=== PATIENT | male | born 1985 | race American Indian/Alaskan Native ===

== ENCOUNTER 2022-03-27 17:32 | Inpatient (IN) | payer BC ==
--- NOTE | 2022-03-27 21:34 | XRay Report ---
XR chest routine 2V INDICATION / CLINICAL INFORMATION: chest pain. COMPARISON: None available. FINDINGS: SUPPORT DEVICES: None. HEART /PULMONARY VASCULATURE: Cardiac enlargement with pulmonary vasculature congestion. LUNGS / PLEURA: Diffuse increased interstitial markings. No focal airspace consolidation. No sizable pleural effusion. No pneumothorax. ADDITIONAL FINDINGS: No significant additional findings. IMPRESSION: Cardiac enlargement with pulmonary vasculature congestion. Diffuse increased interstitial markings ma y reflect interstitial edema or atypical infiltrate, given provided clinical history of COVID. Signer Name: Gerald Beltrán MD Signed: 03/27/2022 9:30 PM Workstation Name: [id number]
[2022-03-27 22:03] LABS: Basophils % (Auto) 0.6 % (0.0-1.8); Eosinophils % (Auto) 0.6 % (0.0-4.3); Hematocrit 44.2 % (35.5-45.6); Hemoglobin 14.5 gm/dl (11.8-15.2); Lymphocytes # (Auto) 1.8 K/mm3 (1.2-5.4); Lymphocytes % (Auto) 24.7 % (13.4-35.0); Mean Corpuscular HGB Conc 33 % (32-34); Mean Corpuscular Volume 90 fl (84-94); Monocytes # (Auto) 0.6 K/mm3 (0.0-0.8); Monocytes % (Auto) 8.8 % (0.0-7.3); Platelet Count 287 K/mm3 (140-440); Red Blood Count 4.91 M/mm3 (3.65-5.03); Red Cell Distribution Width 14.6 % (13.2-15.2)
[2022-03-27 22:24] LABS: Alanine Aminotransferase 103 units/L (7-56); Albumin 4.2 g/dL (3.9-5); BUN/Creatinine Ratio 14; Blood Urea Nitrogen 18 mg/dL (9-20); Calcium 8.8 mg/dL (8.4-10.2); Hemolysis Index 17
[2022-03-28] MEDS ORDERED: MORPHINE 4 MG/1 ML INJ IV ONE (01:13)
[2022-03-28] MEDS ORDERED: ONDANSETRON 4 MG/2 ML INJ IV ONE (01:13)
[2022-03-28] MEDS ORDERED: FAMOTIDINE 20 MG/2 ML INJ IV ONE (01:13)
[2022-03-28] MEDS ORDERED: ASPIRIN 325 MG TAB PO ONE (01:14)
--- NOTE | 2022-03-28 02:40 | Cat Scan Report ---
CT ABDOMEN AND PELVIS WITH CONTRAST INDICATION / CLINICAL INFORMATION: ABDOMINAL PAIN. TECHNIQUE: Axial CT images were obtained through the abdomen and pelvis after 100 cc Omnipaque [address] scans at this location are performed using CT dose reduction for ALARA by means of automated exposure control. COMPARISON: CTA chest same date. FINDINGS: LOWER CHEST: Place a comparison study for findings. LIVER: No focal lesion. No acute findings. GALLBLADDER: No significant abnormality. BILE DUCTS: No significant abnormality. SPLEEN: No significant abnormality. PANCREAS: No significant abnormality. ADRENALS: No significant abnormality. KIDNEYS/URETERS: No stones or hydronephrosis. No solid renal lesion. STOMACH / DUODENUM / SMALL BOWEL: The stomach, duodenum, and small bowel demonstrate no significant a bnormality. No specific abnormality of the mesentery demonstrated. COLON: No significant abnormality. APPENDIX: No significant abnormality. PERITONEUM: No free air or free fluid are present within the abdomen or pelvis. LYMPH NODES: No significant adenopathy. AORTA / ARTERIES: No significant abnormality. IVC / VEINS: No significant abnormality. URINARY BLADDER: No significant abnormality. REPRODUCTIVE ORGANS: No significant abnormality. ADDITIONAL ABDOMINAL/PELVIC FINDINGS: None. SKELETAL SYSTEM: No significant abnormality. IMPRESSION: 1. No imaging findings to suggest etiology of the provided symptoms. Signer Name: Demetrius Chan II, MD Signed: 03/28/2022 2:36 AM Workstation Name: [id number]
--- NOTE | 2022-03-28 02:40 | Cat Scan Report ---
CTA CHEST WITH CONTRAST INDICATION / CLINICAL INFORMATION: DYSPNEA. TECHNIQUE: Axial CT images were obtained through the chest after injection of 100 cc Omnipaque 350 IV contrast. 3 plane MIP and/or 3D reconstructions were produced. All CT scans at this location are per formed using CT dose reduction for ALARA by means of automated exposure control. COMPARISON: Chest x-ray 03/27/2022 FINDINGS: VASCULAR FINDINGS: PULMONARY ARTERY: Pulmonary artery is normal in size. No filling defects are present compatible with pulmonary artery embolus.. THORACIC AORTA: No significant abnormality. CORONARY ARTERY CALCIFICATION: Absent -- None. NONVASCULAR FINDINGS: LOWER NECK: Soft tissues and musculature of the lower neck demonstrate no significant abnormality. Th e thyroid demonstrates no significant abnormality. HEART: Mild cardiomegaly. Four-chamber enlargement. MEDIASTINUM / RODOLFO: No significant abnormality. ESOPHAGUS: No significant abnormality. LYMPH NODES: Enlarged lymph nodes within the prevascular space, lower right paratracheal space, and b orderline enlarged right hilar lymph nodes. LUNGS: Subsegmental atelectasis within the lingula. Within the lower lobes, smoothly thickened interl obular septal lines are present. The dependent pulmonary venous structures are minimally engorged. PLEURA: No pleural effusion. No pneumothorax. THORACIC SOFT TISSUES: No significant abnormality of the chest wall or upper thoracic musculature. BONES: No significant skeletal abnormalities. ADDITIONAL CHEST FINDINGS: None. UPPER ABDOMEN: No significant abnormality. IMPRESSION: 1. No CT evidence for pulmonary embolism. 2. Additional findings as detailed above are most suggestive of mildly decompensated CHF with vascula r congestive changes as well as mild interstitial pulmonary edema. 3. Mediastinal adenopathy of uncertain clinical significance. Signer Name: Demetrius Chan II, MD Signed: 03/28/2022 2:36 AM Workstation Name: [id number]
--- NOTE | 2022-03-28 03:20 | Emergency Department Report ---
ED Abdominal Pain HPI - General Chief Complaint: Abdominal Pain Stated Complaint: STOMACH PAIN Source: patient Mode of arrival: Ambulatory Limitations: No Limitations - History of Present Illness Initial Comments: Patient is a 36-year-old -[place] male with a history of morbid obesity and previous COVID-19 viral infection about 2 weeks ago presents to the ED with complaint of acute onset persistent shortness of breath on exertion with mild dry cough and orthopnea for the last 1 week. Patient also complains of nausea and vomiting and diffuse abdominal pain for the last 5 days. Patient states that in the last 2 days he has not been able to keep anything down because of persistent nausea and vomiting and diffuse abdominal pain and worsening shortness of breath. Patient states that he has since tested negative for COVID- 19 viral infection about 3 days ago. Patient denies fever, chills, diarrhea, dizziness, syncope, change in vision, neck pain, headache, sore throat, hemoptysis or hematemesis. MD Complaint: abdominal pain, other (Nausea and vomiting, shortness of breath and orthopnea) -: Sudden, week(s) (1) Location: diffuse Migration to: no migration Severity scale (0 -10): 5 Quality: cramping, sharp Consistency: constant Improves With: nothing Worsens With: nothing Associated Symptoms: denies other symptoms, nausea, vomiting, other (Shortness of breath). denies: diarrhea, fever, chills, dysuria, hematochezia, melena, hematuria, anorexia, syncope - Related Data Allergies Allergy/AdvReac Type Severity Reaction Status Date / Time No Known Allergies Allergy Unverified 03/27/22 17:41 ED Review of Systems ROS: Stated complaint: STOMACH PAIN Other details as noted in HPI Constitutional: denies: chills, fever Eyes: denies: eye pain, eye discharge, vision change ENT: denies: ear pain, throat pain Respiratory: orthopnea, shortness of breath, SOB with exertion. denies: cough, wheezing Cardiovascular: denies: chest pain, palpitations Endocrine: no symptoms reported Gastrointestinal: abdominal pain, nausea, vomiting. denies: diarrhea Genitourinary: denies: urgency, dysuria Musculoskeletal: denies: back pain, joint swelling, arthralgia Skin: denies: rash, lesions Neurological: denies: headache, weakness, paresthesias Psychiatric: denies: anxiety, depression Hematological/Lymphatic: denies: easy bleeding, easy bruising ED Physical Exam - General Limitations: No Limitations General appearance: alert, in no apparent distress - Head Head exam: Present: atraumatic, normocephalic, normal inspection - Eye Eye exam: Present: normal appearance, PERRL, EOMI Pupils: Present: normal accommodation - ENT ENT exam: Present: normal exam, normal orophraynx, mucous membranes moist, TM's normal bilaterally, normal external ear exam - Neck Neck exam: Present: normal inspection, full ROM. Absent: tenderness - Respiratory Respiratory exam: Present: normal lung sounds bilaterally. Absent: respiratory distress, wheezes, rales, rhonchi, stridor, chest wall tenderness, accessory muscle use, decreased breath sounds, other - Cardiovascular Cardiovascular Exam: Present: normal rhythm, tachycardia, normal heart sounds. Absent: systolic murmur, diastolic murmur, rubs, gallop - GI/Abdominal GI/Abdominal exam: Present: soft, tenderness (Palpable mild diffuse abdominal tenderness), normal bowel sounds. Absent: guarding, rebound, hyperactive bowel sounds, hypoactive bowel sounds, organomegaly, mass - Extremities Exam Extremities exam: Present: normal inspection, full ROM, normal capillary refill. Absent: tenderness - Back Exam Back exam: Present: normal inspection, full ROM. Absent: tenderness, CVA tenderness (R), CVA tenderness (L), muscle spasm, paraspinal tenderness, vertebral tenderness - Neurological Exam Neurological exam: Present: alert, oriented X3, CN II-XII intact, normal gait, reflexes normal - Psychiatric Psychiatric exam: Present: normal affect, normal mood - Skin Skin exam: Present: warm, dry, intact, normal color. Absent: rash ED Course Vital Signs 03/27/22 17:41 Temperature 98.6 F Pulse Rate 114 H Respiratory 18 Rate Blood Pressure 184/139 [Right] O2 Sat by Pulse 97 Oximetry ED Medical Decision Making - Lab Data Result diagrams: 03/27/22 21:13 03/27/22 21:13 - EKG Data EKG shows normal: sinus rhythm Rate: normal, tachycardia - EKG Data Interpretation: normal EKG 03/28/22 03:31 EKG shows sinus tachycardia with a medical rate of [address] or T wave abnormalities. - Radiology Data Radiology results: report reviewed, image reviewed [facility] [address] [place] [address] XRay Report Signed Patient: JENNIFER FRANCIS JR MR#: [id number] : 1985 Acct:[id number] Age/Sex: 36 / M ADM Date: 03/27/22 Loc: ED Attending Dr: Ordering Physician: TEJAL VILLASEÑOR Date of Service: 03/27/22 Procedure(s): XR chest routine 2V Accession Number(s): [id number] cc: TEJAL VILLASEÑOR Fluoro Time In Minutes: XR chest routine 2V INDICATION / CLINICAL INFORMATION: chest pain. COMPARISON: None available. FINDINGS: SUPPORT DEVICES: None. HEART /PULMONARY VASCULATURE: Cardiac enlargement with pulmonary vasculature congestion. LUNGS / PLEURA: Diffuse increased interstitial markings. No focal airspace consolidation. No sizable pleural effusion. No pneumothorax. ADDITIONAL FINDINGS: No significant additional findings. IMPRESSION: Cardiac enlargement with pulmonary vasculature congestion. Diffuse increased interstitial markings may reflect interstitial edema or atypical infiltrate, given provided clinical history of COVID. Signer Name: Heath Beltrán MD Signed: 03/27/2022 9:30 PM Workstation Name: [id number] Transcribed By: SIMON Dictated By: HEATH BELTRÁN MD Electronically Authenticated By: HEATH BELTRÁN MD Signed Date/Time: 03/27/222129 DD/ 27 TD/TT: [facility] [address] [place] [address] Cat Scan Report Signed Patient: JENNIFER FRANCIS JR MR#: [id number] : 1985 Acct:[id number] Age/Sex: 36 / M ADM Date: 03/27/22 Loc: ED Attending Dr: Ordering Physician: PAM AGUILERA Date of Service: 03/28/22 Procedure(s): CT angio chest Accession Number(s): [id number] cc: PAM AGUILERA CTA CHEST WITH CONTRAST INDICATION / CLINICAL INFORMATION: DYSPNEA. TECHNIQUE: Axial CT images were obtained through the chest after injection of 100 cc Omnipaque 350 IV contrast. 3 plane MIP and/or 3D reconstructions were produced. All CT scans at this location are performed using CT dose reduction for ALARA by means of automated exposure control. COMPARISON: Chest x-ray 03/27/2022 FINDINGS: VASCULAR FINDINGS: PULMONARY ARTERY: Pulmonary artery is normal in size. No filling defects are present compatible with pulmonary artery embolus.. THORACIC AORTA: No significant abnormality. CORONARY ARTERY CALCIFICATION: Absent -- None. NONVASCULAR FINDINGS: LOWER NECK: Soft tissues and musculature of the lower neck demonstrate no s ignificant abnormality. The thyroid demonstrates no significant abnormality. HEART: Mild cardiomegaly. Four-chamber enlargement. MEDIASTINUM / RODOLFO: No significant abnormality. ESOPHAGUS: No significant abnormality. LYMPH NODES: Enlarged lymph nodes within the prevascular space, lower right paratracheal space, and borderline enlarged right hilar lymph nodes. LUNGS: Subsegmental atelectasis within the lingula. Within the lower lobes, smoothly thickened interlobular septal lines are present. The dependent pulmonary venous structures are minimally engorged. PLEURA: No pleural effusion. No pneumothorax. THORACIC SOFT TISSUES: No significant abnormality of the chest wall or upper thoracic musculature. BONES: No significant skeletal abnormalities. ADDITIONAL CHEST FINDINGS: None. UPPER ABDOMEN: No significant abnormality. IMPRESSION: 1. No CT evidence for pulmonary embolism. 2. Additional findings as detailed above are most suggestive of mildly decompensated CHF with vascular congestive changes as well as mild interstitial pulmonary edema. 3. Mediastinal adenopathy of uncertain clinical significance. Signer Name: Frances Sharma II, MD Signed: 03/28/2022 2:36 AM Workstation Name: [id number] Transcribed By: FLAQUITO Dictated By: FRANCES SHARMA II, MD Electronically Authenticated By: FRANCES SHARMA II, MD Signed Date/Time: 03/28/22235 DD/ 023 TD/TT: [facility] [address] [place] [id number] Cat Scan Report Signed Patient: JENNIFER FRANCIS JR MR#: [id number] : 1985 Acct:[id number] Age/Sex: 36 / M A DM Date: 03/27/22 Loc: ED Attending Dr: Ordering Physician: PAM AGUILERA Date of Service: 03/28/22 Procedure(s): CT abdomen pelvis w con Accession Number(s): [id number] cc: PAM AGUILERA CT ABDOMEN AND PELVIS WITH CONTRAST INDICATION / CLINICAL INFORMATION: ABDOMINAL PAIN. TECHNIQUE: Axial CT images were obtained through the abdomen and pelvis after 100 cc Omnipaque [address]. [address] scans at this location are performed using CT dose redu ction for [facility] by means of automated exposure control. COMPARISON: CTA chest same date. FINDINGS: LOWER CHEST: Place a comparison study for findings. LIVER: No focal lesion. No acute findings. GALLBLADDER: No significant abnormality. BILE DUCTS: No significant abnormality. SPLEEN: No significant abnormality. PANCREAS: No significant abnormality. ADRENALS: No significant abnormality. KIDNEYS/URETERS: No stones or hydronephrosis. No solid renal lesion. STOMACH / DUODENUM / SMALL BOWEL: The stomach, duodenum, and small bowel demonstrate no significant abnormality. No specific abnormality of the mesentery demonstrated. COLON: No significant abnormality. APPENDIX: No significant abnormality. PERITONEUM: No free air or free fluid are present within the abdomen or pelvis. LYMPH NODES: No significant adenopathy. AORTA / ARTERIES: No significant abnormality. IVC / VEINS: No significant abnormality. URINARY BLADDER: No significant abnormality. REPRODUCTIVE ORGANS: No significant abnormality. ADDITIONAL ABDOMINAL/PELVIC FINDINGS: None. SKELETAL SYSTEM: No significant abnormality. IMPRESSION: 1. No imaging findings to suggest etiology of the provided symptoms. Signer Name: Frances Sharma II, MD Signed: 03/28/2022 2:36 AM Workstation Name: [id number] Transcribed By: FLAQUITO Dictated By: FRANCES SHARMA II, MD Electronically Authenticated By: FRANCES SHARMA II, MD Signed Date/Time: 03/28/22235 DD/ 3 TD/TT: - Medical Decision Making This is a 36-year-old -[place] male with a history of morbid obesity and previous COVID-19 viral infection about 2 weeks ago presents to the ED with complaint of acute onset persistent shortness of breath on exertion with mild dry cough and orthopnea for the last 1 week. Patient also complains of nausea and vomiting and diffuse abdominal pain for the last 5 days. Patient states that in the last 2 days he has not been able to keep anything down because of persistent nausea and vomiting and diffuse abdominal pain and worsening shortness of breath. Patient states that he has since tested negative for COVID- 19 viral infection about 3 days ago. In the ED, patient is alert and oriented x3 and is not in any distress but tachycardic and afebrile in triage. Lab test results were reviewed and showed BNP of 4129. The rest of the lab test results are nonactionable. The EKG shows sinus tachycardia with a ventricular rate of 106 bpm, no ST or T wave abnormalities. Chest x-ray showed cardiac enlargement with pulmonary vasculature congestion. Diffuse increased interstitial markings may reflect interstitial edema or atypical infiltrate, given provided clinical h istory of COVID. Chest CTA showed no CT evidence for pulmonary embolism. In addition, it also showed enlarged lymph nodes within the prevascular space, lower right paratracheal space, and borderline enlarged right hilar lymph nodes. The lungs showed subsegmental atelectasis within the lingula. Within the lower lobes, smoothly thickened interlobular septal lines are present. The dependent pulmonary venous structures are minimally engorged. These findings are most suggestive of mildly decompensated CHF with vascular congestive changes as well as mild interstitial pulmonary edema. The abdomen pelvis CT scan with IV contrast showed no acute abnormalities in the abdomen and pelvis. Patient was treated for pain in the ED, and also received aspirin and Lasix 40 mg IV x1. Based on the history and physical exam findings, the patient symptoms are likely due to new onset CHF. Patient case was discussed with the hospitalist physician on-call who admitted the patient to the hospitalist on-call Dr. Escalante who admitted the patient to the hospital. - Differential Diagnosis Orthopnea; CHF; pneumonia; PE; ACS; dissection; pancreatitis; dehydration Critical care attestation.: If time is entered above; I have spent that time in minutes in the direct care of this critically ill patient, excluding procedure time. ED Disposition Clinical Impression: New onset of congestive heart failure, SOB (shortness of breath) on exertion, Orthopnea, Nausea and vomiting in adult Abdominal pain Qualifiers: Abdominal location: generalized Qualified Code(s): R10.84 - Generalized abdominal pain Disposition: 02 SHORT [facility] Is pt being admited?: Yes Does the pt Need Aspirin: No Condition: Stable Referrals: COLLEEN LI MD [Primary Care Provider] - 3-5 Days Time of Disposition: 03:29 Print Language: MOLDOVAN
[2022-03-28] MEDS ORDERED: FUROSEMIDE 40 MG/4 ML INJ IV ONE (03:27)
[2022-03-28] MEDS ORDERED: ACETAMINOPHEN 325 MG TAB PO PRN ×2 (03:33→05:29)
[2022-03-28] MEDS ORDERED: MORPHINE 2 MG/1 ML INJ IV PRN ×2 (03:33→05:29)
[2022-03-28] MEDS ORDERED: ONDANSETRON 4 MG/2 ML INJ IV PRN ×2 (03:33→05:29)
[2022-03-28] MEDS ORDERED: HYDROmorphone 1 MG/1 ML INJ IV PRN (05:29)
[2022-03-28] MEDS ORDERED: ALBUTEROL 2.5 MG/3 ML NEBU IH PRN (05:29)
--- NOTE | 2022-03-28 05:36 | History and Physical Report ---
History of Present Illness Date of examination: 03/28/22 Date of admission: 03/28/22 Chief complaint: Shortness of breath Abdominal pain History of present illness: 36-year-old male with history of morbid obesity and previous COVID-19 viral infection about 2 weeks ago was brought to the emergency room because of acute onset persistent shortness of breath on exertion with mild dry cough and orthopnea for the last 1 week. Patient also complains of nausea and vomiting and diffuse abdominal pain for the last 5 days. Patient states that in the last 2 days he has not been able to keep anything down because of persistent nausea and vomiting and diffuse abdominal pain and worsening shortness of breath. Patient states that he has since tested negative for COVID-19 viral infection about 3 days ago. Patient denies fever, chills, diarrhea, dizziness, syncope, change in vision, neck pain, headache, sore throat, hemoptysis or hematemesis. In the emergency room patient is found to have proBNP of 4129 .Chest CTA showed no CT evidence for pulmonary embolism. In addition, it also showed enlarged lymph nodes within the prevascular space, lower right paratracheal space, and borderline enlarged right hilar lymph nodes. The lungs showed subsegmental atelectasis within the lingula. Within the lower lobes, smoothly thickened interlobular septal lines are present. The dependent pulmonary venous structures are minimally engorged. These findings are most suggestive of mildly decompensated CHF with vascular congestive changes as well as mild interstitial pulmonary edema. The abdomen pelvis CT scan with IV contrast showed no acute abnormalities in the abdomen and pelvis So going to admit the patient , we will put the patient on CHF Past History Past Medical History: other (Morbid obesity, COVID-19 infection) Past Surgical History: No surgical history Social history: no significant social history Family history: hypertension Medications and Allergies Allergies Allergy/AdvReac Type Severity Reaction Status Date / Time No Known Allergies Allergy Verified 03/28/22 03:38 Active Meds: Active Medications Acetaminophen (Acetaminophen 325 Mg Tab) 650 mg PO Q4H PRN PRN Reason: Pain MILD(1-3)/Fever >100.5/BARNES Morphine Sulfate (Morphine 2 Mg/1 Ml Inj) 2 mg IV Q4H PRN PRN Reason: Pain, Moderate (4-6) Ondansetron HCl (Ondansetron 4 Mg/2 Ml Inj) 4 mg IV Q8H PRN PRN Reason: Nausea And Vomiting Sodium Chloride (Sodium Chloride 0.9% 10 Ml Flush Syringe) 10 ml IV BID SALONI Sodium Chloride (Sodium Chloride 0.9% 10 Ml Flush Syringe) 10 ml IV PRN PRN PRN Reason: LINE FLUSH Review of Systems All systems: negative Cardiovascular: orthopnea, edema, shortness of breath, dyspnea on exertion, paro xysmal nocturnal dyspnea Respiratory: shortness of breath, dyspnea on exertion Exam - Constitutional Vitals: Temp Pulse Resp BP Pulse Ox 98.6 F 106 H 41 H 178/133 96 03/27/22 17:41 03/28/22 03:46 03/28/22 03:46 03/28/22 03:46 03/28/22 03:46 General appearance: Present: no acute distress, well-nourished - EENT Eyes: Present: PERRL ENT: hearing intact, clear oral mucosa - Neck Neck: Present: supple, normal ROM - Respiratory Respiratory effort: normal Respiratory: bilateral: rales - Cardiovascular Heart Sounds: Present: S1 & S2. Absent: rub, click - Extremities Extremities: pulses symmetrical, No edema Peripheral Pulses: within normal limits - Abdominal General gastrointestinal: Present: soft, non-tender, non-distended, normal bowel sounds Male genitourinary: Present: normal - Integumentary Integumentary: Present: clear, warm, dry - Musculoskeletal Musculoskeletal: gait normal, strength equal bilaterally - Psychiatric Psychiatric: appropriate mood/affect, intact judgment & insight - Neurologic Neurologic: CNII-XII intact, moves all extremities HEART Score - HEART Score Troponin: Troponin T < 0.010 ng/mL (0.00-0.029) 03/28/22 01:26 Results - Labs CBC & Chem 7: 03/27/22 21:13 03/27/22 21:13 Labs: Laboratory Last Values WBC 7.3 K/mm3 (4.5-11.0) 03/27/22 21:13 RBC 4.91 M/mm3 (3.65-5.03) 03/27/22 21:13 Hgb 14.5 gm/dl (11.8-15.2) 03/27/22 21:13 Hct 44.2 % (35.5-45.6) 03/27/22 21:13 MCV 90 fl (84-94) 03/27/22 21:13 MCH 29 pg (28-32) 03/27/22 21:13 MCHC 33 % (32-34) 03/27/22 21:13 RDW 14.6 % (13.2-15.2) 03/27/22 21:13 Plt Count 287 K/mm3 (140-440) 03/27/22 21:13 Lymph % (Auto) 24.7 % (13.4-35.0) 03/27/22 21:13 [place] % (Auto) 8.8 % (0.0-7.3) H 03/27/22 21:13 Eos % (Auto) 0.6 % (0.0-4.3) 03/27/22 21:13 Baso % (Auto) 0.6 % (0.0-1.8) 03/27/22 21:13 Lymph # (Auto) 1.8 K/mm3 (1.2-5.4) 03/27/22 21:13 [place] # (Auto) 0.6 K/mm3 (0.0-0.8) 03/27/22 21:13 Eos # (Auto) 0.0 K/mm3 (0.0-0.4) 03/27/22 21:13 Baso # (Auto) 0.0 K/mm3 (0.0-0.1) 03/27/22 21:13 Seg Neutrophils % 65.3 % (40.0-70.0) 03/27/22 21:13 Seg Neutrophils # 4.8 K/mm3 (1.8-7.7) 03/27/22 21:13 Sodium 142 mmol/L (137-145) 03/27/22 21:13 Potassium 4.9 mmol/L (3.6-5.0) 03/27/22 21:13 Chloride 104.9 mmol/L (98-107) 03/27/22 21:13 Carbon Dioxide 23 mmol/L (22-30) 03/27/22 21:13 Anion Gap 19 mmol/L 03/27/22 21:13 BUN 18 mg/dL (9-20) 03/27/22 21:13 Creatinine 1.3 mg/dL (0.8-1.3) 03/27/22 21:13 Estimated GFR > 60 ml/min 03/27/22 21:13 BUN/Creatinine Ratio 14 % 03/27/22 21:13 Glucose 143 mg/dL (75-100) H 03/27/22 21:13 Calcium 8.8 mg/dL (8.4-10.2) 03/27/22 21:13 Total Bilirubin 0.80 mg/dL (0.1-1.2) 03/27/22 21:13 AST 36 units/L (5-40) 03/27/22 21:13 ALT 103 units/L (7-56) H 03/27/22 21:13 Alkaline Phosphatase 83 units/L (35-129) 03/27/22 21:13 Troponin T < 0.010 ng/mL (0.00-0.029) 03/28/22 01:26 NT-Pro-B Natriuret Pep 4129 pg/mL (0-450) H 03/27/22 21:13 Total Protein 6.5 g/dL (6.3-8.2) 03/27/22 21:13 Albumin 4.2 g/dL (3.9-5) 03/27/22 21:13 Albumin/Globulin Ratio 1.8 % 03/27/22 21:13 Amylase 47 units/L (27-131) 03/27/22 21:13 Lipase 29 units/L (13-60) 03/27/22 21:13 - Imaging and Cardiology CT scan - abdomen: report reviewed CT scan - chest: report reviewed Assessment and Plan VTE prophylaxis?: Chemical Plan of care discussed with patient/family: Yes - Patient Problems (1) New onset of congestive heart failure Current Visit: Yes Status: Acute Plan to address problem: Admit the patient to the medical telemetry. Cardiac diet. Fluid restriction. Maintain input output. Daily weight. Lasix 40 mg IV every 12 hours. Echocardiogram. Consult cardiology if needed (2) SOB (shortness of breath) on exertion Current Visit: Yes Status: Acute Plan to address problem: Oxygen via nasal cannula 3 L/min. DuoNeb via nebulizer every 4 hours. Albuterol via nebulizer every 4 hours as needed (3) COVID-19 virus infection Current Visit: Yes Status: Acute Plan to address problem: . Patient had history of COVID infection. Patient recently tested negative for COVID-19 infection as per document (4) Orthopnea Current Visit: Yes Status: Acute Plan to address problem: Cardiac diet. Fluid restriction. Maintain input output. Daily weight. Lasix 40 mg IV every 12 hours. Echocardiogram. Consult cardiology if needed (5) Abdominal pain Current Visit: Yes Status: Acute Qualifiers: Abdominal location: generalized Qualified Code(s): R10.84 - Generalized abdominal pain Plan to address problem: Tylenol 650 mg p.o. every 6 hours as needed. Pepcid 20 mg p.o. twice daily. Morphine 2 mg IV every 4 hours as needed (6) Nausea and vomiting in adult Current Visit: Yes Status: Acute Plan to address problem: Pepcid 20 mg p.o. twice daily , Zofran 4 mg IV every 6 hours as needed (7) DVT prophylaxis Current Visit: Yes Status: Acute Plan to address problem: Heparin 5000 units subcu every 12 hours for DVT prophylaxis. Pepcid 20 mg p.o. twice daily for GI prophylaxis. Patient is a full code
[2022-03-28] MEDS: FUROSEMIDE 40 MG/4 ML INJ IV SCH ×2 (06:05→18:40)
[2022-03-28] MEDS ORDERED: HEPARIN 5,000 UNIT/1 ML VIAL SUB-Q SCH (10:00)
[2022-03-28] MEDS: VALSARTAN 160MG TAB PO SCH (10:03)
[2022-03-28] MEDS: SPIRONOLACTONE 25 MG TAB PO SCH (10:03)
[2022-03-28] MEDS: FAMOTIDINE 20 MG TAB PO SCH ×2 (10:04→21:15)
[2022-03-28] MEDS: carvediloL 6.25 MG TAB PO SCH ×2 (10:04→21:14)
[2022-03-28] MEDS: HEPARIN 5,000 UNIT/1 ML VIAL SUB-Q SCH ×2 (10:04→18:42)
--- NOTE | 2022-03-28 10:15 | Electrocardiograph Report ---
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
--- NOTE | 2022-03-28 10:15 | Electrocardiograph Report ---
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
[2022-03-28] MEDS: IPRATROPIUM/ALBUTEROL SULFATE 3 ML AMPUL.NEB IH SCH ×3 (10:53→20:16)
[2022-03-28 11:55] LABS: Chol/HDL Ratio 4.12 %
--- NOTE | 2022-03-28 12:27 | Event Note ---
Date: 03/28/22 The patient was evaluated this morning, and he was found to be hemodynamically stable. The patient has uncontrolled hypertension. #Acute systolic heart failure (newly diagnosed) - Continue CHF exacerbation protocol: Telemetry, Strict I/O, monitor urine output every shift, daily weights, afterload reduction, low-sodium diet, and fluid restriction of approximately 1.5 mL/day, IV Lasix 40 mg twice daily - Supplemental oxygen: None - ProBNP on admission: 4129 - Cardiology consulted; pending recs - TTE (03/28/2022) revealing EF 20% with severely dilated LV, severely decreased LV systolic function, severe global hypokinesis of LV, moderately dilated RV, severely dilated LA, dilated RA, and RVSP is 35 mmHg. Chest x-ray interpreted by physician: Increased cardiac silhouette, loss of left costophrenic angle, increased interstitial markings suggestive of pulmonary edema - Continue to monitor #Uncontrolled hypertension - home medications: None - current medications: Valsartan 160 mg daily, amlodipine 10 mg daily, Coreg 12.5mg twice daily - SBP goal <160 and DBP goal <90 while inpatient - continue to monitor #Prior COVID-19 history Patient endorses being diagnosed with COVID-19 approximately 2 weeks ago and having a negative COVID-19 test approximately 3 days prior to presentation Pending coronavirus PCR Ordering airborne and droplet precautions. If coronavirus PCR is unremarkable, precautions can be discontinued. No clinical indication to initiate coronavirus treatment. #Abdominal pain Continue with Pepcid 20 mg twice daily, IV Zofran 4 mg every 6 hours as needed Continue to monitor #Elevated transaminases ALT 103 Possibly secondary to volume overload. Continue to monitor. #Morbid obesity #Weight loss counseling #Exercise counseling - BMI 47.5 - Counseled patient on the importance of weight loss, incorporating exercise, and dietary changes (lean meats, fresh fruits and vegetables, and water intake). Patient expresses understanding. - Time: +15 min #Coordination of CARE time: 30 minutes. Total visit time equals 30 or more minutes with greater than 50% spent [id number] on coordination of care and counseling. #Advanced care planning -Disease education conducted, care plan discussed, diagnoses discussed, prognosis discussed, and patient acknowledges understanding with care plan -Time: +30 min
[2022-03-28] MEDS: amLODIPine 10 MG TAB PO SCH (14:37)
[2022-03-28] MEDS ORDERED: carvediloL 12.5 MG TAB PO ONE (15:00)
[2022-03-29] MEDS: HEPARIN 5,000 UNIT/1 ML VIAL SUB-Q SCH ×3 (02:15→17:06)
[2022-03-29 04:03] LABS: Basophils % (Auto) 0.7 % (0.0-1.8); Eosinophils # (Auto) 0.1 K/mm3 (0.0-0.4); Eosinophils % (Auto) 1.6 % (0.0-4.3); Hematocrit 41.7 % (35.5-45.6); Hemoglobin 13.4 gm/dl (11.8-15.2); Lymphocytes # (Auto) 2.1 K/mm3 (1.2-5.4); Lymphocytes % (Auto) 34.1 % (13.4-35.0); Mean Corpuscular HGB Conc 32 % (32-34); Mean Corpuscular Volume 91 fl (84-94); Monocytes # (Auto) 0.6 K/mm3 (0.0-0.8); Monocytes % (Auto) 9.6 % (0.0-7.3); Platelet Count 257 K/mm3 (140-440)
[2022-03-29 04:06] LABS: BUN/Creatinine Ratio 18; Blood Urea Nitrogen 25 mg/dL (9-20); Calcium 8.2 mg/dL (8.4-10.2); Hemolysis Index 21
[2022-03-29] MEDS: FUROSEMIDE 40 MG/4 ML INJ IV SCH (06:00)
[2022-03-29] MEDS: IPRATROPIUM/ALBUTEROL SULFATE 3 ML AMPUL.NEB IH SCH ×3 (08:35→21:16)
[2022-03-29] MEDS ORDERED: CALCIUM CHLORIDE 1,000 MG in SODIUM CHLORIDE 0.9% 100 ML IV ONE (09:30)
[2022-03-29] MEDS: VALSARTAN 160MG TAB PO SCH (09:56)
[2022-03-29] MEDS: amLODIPine 10 MG TAB PO SCH (09:57)
[2022-03-29] MEDS: FAMOTIDINE 20 MG TAB PO SCH ×2 (09:57→22:41)
[2022-03-29] MEDS: SPIRONOLACTONE 25 MG TAB PO SCH (09:57)
[2022-03-29] MEDS: carvediloL 6.25 MG TAB PO SCH ×2 (09:57→22:40)
--- NOTE | 2022-03-29 11:05 | Consultation ---
History of Present Illness Consult date: 03/29/22 Consult reason: congestive heart failure History of present illness: The patient is a 36-year-old man severely obese, who admits to a known history of hypertension for which he has not seen a physician in many years. He presents to the hospital at this time with a 1 to 2-week history of progressive fatigue, shortness of breath, and exercise intolerance. He reports no chest pain, and minimal to no significant lower extremity edema. Work-up in the hospital, ECG was a sinus rhythm, left axis deviation, left ventricle hypertrophy but no acute ST or T wave abnormalities of ischemia or infarction. His chest x-ray demonstrated a severe cardiomegaly, with mild bilateral interstitial edema, worse on the right. Echocardiogram done yesterday shows a severe four-chamber dilated cardiomyopathy, with left ventricular ejection fraction less than 15 to 20%. The patient reports no known cardiac history. He reports no prior cardiac work- up. His recent medical history is notable for a severe COVID infection 4 months ago, which she states was managed in the outpatient setting, and following which he reports intermittent fatigue until his current persistent and progressive symptoms. Notably, his presentation to the hospital yesterday, his COVID serology test is positive. He was not vaccinated before his infection in [facility], but states that since then he has received at least 1 dose of the vaccine. He currently is on the medical floor, looks comfortable in no acute distress. Past History Past Medical History: hypertension, other (Morbid obesity, COVID-19 infection) Past Surgical History: No surgical history Social history: no significant social history Family history: hypertension Medications and Allergies Allergies Allergy/AdvReac Type Severity Reaction Status Date / Time No Known Allergies Allergy Verified 03/28/22 03:38 Home Medications Medication Instructions Recorded Confirmed Last Taken Type No Known Home Medications [No 03/28/22 03/28/22 Unknown History Reported Home Medications] Active Meds: Active Medications Acetaminophen (Acetaminophen 325 Mg Tab) 650 mg PO Q4H PRN PRN Reason: Pain MILD(1-3)/Fever >100.5/BARNES Albuterol (Albuterol 2.5 Mg/3 Ml Nebu) 2.5 mg IH Q3HRT PRN PRN Reason: Shortness Of Breath Albuterol/Ipratropium (Ipratropium/Albuterol Sulfate 3 Ml Ampul.Neb) 1 ampul IH TIDRT SALONI Last Admin: 03/29/22 08:35 Dose: 1 ampul Amlodipine Besylate (Amlodipine 10 Mg Tab) 10 mg PO QDAY [facility] Last Admin: 03/29/22 09:57 Dose: 10 mg Aspirin (Aspirin Ec 81 Mg Tab) 81 mg PO QDAY [facility] Carvedilol (Carvedilol 6.25 Mg Tab) 6.25 mg PO BID [facility] Last Admin: 03/29/22 09:57 Dose: 6.25 mg Famotidine (Famotidine 20 Mg Tab) 20 mg PO BID [facility] Last Admin: 03/29/22 09:57 Dose: 20 mg Furosemide (Furosemide 40 Mg/4 Ml Inj) 40 mg IV BID@0600,1800 [facility] Last Admin: 03/29/22 06:00 Dose: 40 mg Heparin Sodium (Porcine) (Heparin 5,000 Unit/1 Ml Vial) 7,500 unit SUB-Q Q8H [facility] Last Admin: 03/29/22 09:57 Dose: 7,500 unit Hydromorphone HCl (Hydromorphone 1 Mg/1 Ml Inj) 0.5 mg IV Q3H PRN PRN Reason: Pain , Severe (7-10) Morphine Sulfate (Morphine 2 Mg/1 Ml Inj) 2 mg IV Q4H PRN PRN Reason: Pain, Moderate (4-6) Ondansetron HCl (Ondansetron 4 Mg/2 Ml Inj) 4 mg IV Q8H PRN PRN Reason: Nausea And Vomiting Sodium Chloride (Sodium Chloride 0.9% 10 Ml Flush Syringe) 10 ml IV BID [facility] Last Admin: 03/29/22 09:58 Dose: 10 ml Sodium Chloride (Sodium Chloride 0.9% 10 Ml Flush Syringe) 10 ml IV PRN PRN PRN Reason: LINE FLUSH Spironolactone (Spironolactone 25 Mg Tab) 25 mg PO QDAY [facility] Last Admin: 03/29/22 09:57 Dose: 25 mg Valsartan (Valsartan 160mg Tab) 160 mg PO DAILY [facility] Last Admin: 03/29/22 09:56 Dose: 160 mg Review of Systems Cardiovascular: orthopnea, edema, shortness of breath, no chest pain, no palpitations, no rapid/irregular heart beat, no syncope, no lightheadedness Physical Examination Vital Signs Temp Pulse Resp BP Pulse Ox 98.6 F 114 H 18 184/139 97 03/27/22 17:41 03/27/22 17:41 03/27/22 17:41 03/27/22 17:41 03/27/22 17:41 General appearance: no acute distress, obese HEENT: Positive: PERRL Neck: Positive: neck supple Cardiac: Positive: Reg Rate and Rhythm Lungs: Positive: Decreased Breath Sounds Neuro: Positive: Grossly Intact Abdomen: Positive: Soft Male genitourinary: Positive: deferred Skin: Positive: Clear Extremities: Absent: edema Results 03/29/22 03:13 03/29/22 03:13 Lipids 03/28/22 Range/Units 01:26 Triglycerides 72 (2-149) mg/dL Cholesterol 136 (50-199) mg/dL HDL Cholesterol 33 L (40-59) mg/dL Cholesterol/HDL Ratio 4.12 % CBC 03/29/22 Range/Units 03:13 WBC 6.1 (4.5-11.0) K/mm3 RBC 4.60 (3.65-5.03) M/mm3 Hgb 13.4 (11.8-15.2) gm/dl Hct 41.7 (35.5-45.6) % Plt Count 257 (140-440) K/mm3 Lymph # (Auto) 2.1 (1.2-5.4) K/mm3 [place] # (Auto) 0.6 (0.0-0.8) K/mm3 Eos # (Auto) 0.1 (0.0-0.4) K/mm3 Baso # (Auto) 0.0 (0.0-0.1) K/mm3 Comprehensive Metabolic Panel 03/29/22 Range/Units 03:13 Sodium 139 (137-145) mmol/L Potassium 4.3 (3.6-5.0) mmol/L Chloride 102.7 (98-107) mmol/L Carbon Dioxide 22 (22-30) mmol/L BUN 25 H (9-20) mg/dL Creatinine 1.4 H (0.8-1.3) mg/dL Glucose 174 H (75-100) mg/dL Calcium 8.2 L (8.4-10.2) mg/dL EKG interpretations - Telemetry EKG Rhythm: Sinus Rhythm (With left ventricular hypertrophy, left axis deviation, no acute ST or T wave changes) Assessment and Plan - Patient Problems (1) New onset of congestive heart failure Current Visit: Yes Status: Acute Plan to address problem: Patient presents with symptoms of fatigue, shortness of breath and exercise intolerance, echocardiogram shows a severe four-chamber dilated cardiomyopathy. The chronicity of his cardiomyopathy is uncertain, but patient has chronic severe uncontrolled hypertension. Optimize medical therapy with diuretics, afterload agents, beta-blockers, spironolactone and oral antiplatelet therapy. Four-chamber cardiomyopathy in this clinical setting is of a likely idiopathic etiology.
[2022-03-29] MEDS: ASPIRIN EC 81 MG TAB PO SCH (11:14)
--- NOTE | 2022-03-29 13:22 | Progress Note ---
Assessment and Plan Assessment and plan: #Acute systolic heart failure (newly diagnosed) - Continue CHF exacerbation protocol: Telemetry, Strict I/O, monitor urine output every shift, daily weights, afterload reduction, low-sodium diet, and fluid restriction of approximately 1.5 mL/day, IV Lasix 40 mg twice daily. Tra nsitioning to p.o. Lasix twice daily tomorrow morning. - Supplemental oxygen: None - ProBNP on admission: 4129 - Cardiology consulted; appreciate rec - TTE (03/28/2022) revealing EF 20% with severely dilated LV, severely decreased LV systolic function, severe global hypokinesis of LV, moderately dilated RV, severely dilated LA, dilated RA, and RVSP is 35 mmHg. Chest x-ray interpreted by physician: Increased cardiac silhouette, loss of left costophrenic angle, increased interstitial markings suggestive of pulmonary edema - Continue to monitor #Uncontrolled hypertension - home medications: None - current medications: Valsartan 160 mg daily, amlodipine 10 mg daily, Coreg 12.5mg twice daily - SBP goal <160 and DBP goal <90 while inpatient - continue to monitor #Prior COVID-19 history #Positive coronavirus PCR Patient endorses being diagnosed with COVID-19 approximately 2 weeks ago and having a negative COVID-19 test approximately 3 days prior to presentation Ordering airborne and droplet precautions. No clinical indication to initiate coronavirus treatment. #Abdominal pain Continue with Pepcid 20 mg twice daily, IV Zofran 4 mg every 6 hours as needed Continue to monitor #Elevated transaminases ALT 103 Possibly secondary to volume overload. Continue to monitor. #Morbid obesity #Weight loss counseling #Exercise counseling - BMI 47.5 - Counseled patient on the importance of weight loss, incorporating exercise, and dietary changes (lean meats, fresh fruits and vegetables, and water intake). Patient expresses understanding. - Time: +15 min #Advanced care planning -Disease education conducted, care plan discussed, diagnoses discussed, prognosis discussed, and patient acknowledges understanding with care plan -Time: +30 min Disposition Plan: Continue medical management Total Time Spent with Patient (Minutes): 45 minutes History Interval history: No acute events overnight. Hospitalist Physical - Constitutional Vitals: Temp Pulse Resp BP Pulse Ox 98.4 F 93 H 18 150/114 96 03/29/22 08:36 03/29/22 08:36 03/29/22 11:54 03/29/22 09:56 03/29/22 11:54 General appearance: Present: no acute distress, well-nourished, obese - EENT Eyes: Present: PERRL, EOM intact ENT: hearing intact, clear oral mucosa, dentition normal - Neck Neck: Present: supple, normal ROM - Respiratory Respiratory effort: normal Respiratory: bilateral: CTA - Cardiovascular Rhythm: regular Heart Sounds: Present: S1 & S2 - Extremities Extremities: no ischemia, pulses intact, pulses symmetrical, No edema, normal temperature, normal color, Full ROM Peripheral Pulses: within normal limits - Abdominal General gastrointestinal: soft, non-tender, non-distended, normal bowel sounds - Integumentary Integumentary: Present: clear, warm, dry - Psychiatric Psychiatric: appropriate mood/affect, intact judgment & insight, memory intact, cooperative - Neurologic Neurologic: CNII-XII intact, moves all extremities - Allied Health Allied health notes reviewed: nursing HEART Score - HEART Score Troponin: Troponin T < 0.010 ng/mL (0.00-0.029) 03/28/22 01:26 Results - Labs CBC & Chem 7: 03/29/22 03:13 03/29/22 03:13 Labs: Laboratory Last Values WBC 6.1 K/mm3 (4.5-11.0) 03/29/22 03:13 RBC 4.60 M/mm3 (3.65-5.03) 03/29/22 03:13 Hgb 13.4 gm/dl (11.8-15.2) 03/29/22 03:13 Hct 41.7 % (35.5-45.6) 03/29/22 03:13 MCV 91 fl (84-94) 03/29/22 03:13 MCH 29 pg (28-32) 03/29/22 03:13 MCHC 32 % (32-34) 03/29/22 03:13 RDW 14.0 % (13.2-15.2) 03/29/22 03:13 Plt Count 257 K/mm3 (140-440) 03/29/22 03:13 Lymph % (Auto) 34.1 % (13.4-35.0) 03/29/22 03:13 Day % (Auto) 9.6 % (0.0-7.3) H 03/29/22 03:13 Eos % (Auto) 1.6 % (0.0-4.3) 03/29/22 03:13 Baso % (Auto) 0.7 % (0.0-1.8) 03/29/22 03:13 Lymph # (Auto) 2.1 K/mm3 (1.2-5.4) 03/29/22 03:13 Day # (Auto) 0.6 K/mm3 (0.0-0.8) 03/29/22 03:13 Eos # (Auto) 0.1 K/mm3 (0.0-0.4) 03/29/22 03:13 Baso # (Auto) 0.0 K/mm3 (0.0-0.1) 03/29/22 03:13 Seg Neutrophils % 54.0 % (40.0-70.0) 03/29/22 03:13 Seg Neutrophils # 3.3 K/mm3 (1.8-7.7) 03/29/22 03:13 Sodium 139 mmol/L (137-145) 03/29/22 03:13 Potassium 4.3 mmol/L (3.6-5.0) 03/29/22 03:13 Chloride 102.7 mmol/L (98-107) 03/29/22 03:13 Carbon Dioxide 22 mmol/L (22-30) 03/29/22 03:13 Anion Gap 19 mmol/L 03/29/22 03:13 BUN 25 mg/dL (9-20) H 03/29/22 03:13 Creatinine 1.4 mg/dL (0.8-1.3) H 03/29/22 03:13 Estimated GFR > 60 ml/min 03/29/22 03:13 BUN/Creatinine Ratio 18 % 03/29/22 03:13 Glucose 174 mg/dL (75-100) H 03/29/22 03:13 Hemoglobin A1c 6.7 % (4-6) H 03/27/22 11:38 Calcium 8.2 mg/dL (8.4-10.2) L 03/29/22 03:13 Total Bilirubin 0.80 mg/dL (0.1-1.2) 03/27/22 21:13 AST 36 units/L (5-40) 03/27/22 21:13 ALT 103 units/L (7-56) H 03/27/22 21:13 Alkaline Phosphatase 83 units/L (35-129) 03/27/22 21:13 Troponin T < 0.010 ng/mL (0.00-0.029) 03/28/22 01:26 NT-Pro-B Natriuret Pep 4129 pg/mL (0-450) H 03/27/22 21:13 Total Protein 6.5 g/dL (6.3-8.2) 03/27/22 21:13 Albumin 4.2 g/dL (3.9-5) 03/27/22 21:13 Albumin/Globulin Ratio 1.8 % 03/27/22 21:13 Triglycerides 72 mg/dL (2-149) 03/28/22 01:26 Cholesterol 136 mg/dL (50-199) 03/28/22 01:26 LDL Cholesterol Direct 90 mg/dL (50-130) 03/28/22 01:26 HDL Cholesterol 33 mg/dL (40-59) L 03/28/22 01:26 Cholesterol/HDL Ratio 4.12 % 03/28/22 01:26 Amylase 47 units/L (27-131) 03/27/22 21:13 Lipase 29 units/L (13-60) 03/27/22 21:13 Coronavirus (PCR) Positive (Negative) A 03/28/22 12:27 Benjamin/IV: Voiding Method Urinal Active Medications - Current Medications Current Medications: Generic Name Dose Route Start Last Admin Trade Name Freq PRN Reason Stop Dose Admin Acetaminophen 650 mg 03/28/22 05:29 Acetaminophen 325 Mg Tab PO Q4H PRN Pain MILD(1-3)/Fever >100.5/BARNES Albuterol 2.5 mg 03/28/22 05:29 Albuterol 2.5 Mg/3 Ml Nebu IH Q3HRT PRN Shortness Of Breath Albuterol/Ipratropium 1 ampul 03/28/22 20:00 03/29/22 08:35 Ipratropium/Albuterol Sulfate 3 Ml Ampul.Neb IH 1 ampul TIDRT SALONI Administration Amlodipine Besylate 10 mg 03/28/22 15:09 03/29/22 09:57 Amlodipine 10 Mg Tab PO 10 mg QDAY SALONI Administration Aspirin 81 mg 03/29/22 11:00 03/29/22 11:14 Aspirin Ec 81 Mg Tab PO 81 mg QDAY SALONI Administration Carvedilol 6.25 mg 03/28/22 10:00 03/29/22 09:57 Carvedilol 6.25 Mg Tab PO 6.25 mg BID SALONI Administration Famotidine 20 mg 03/28/22 10:00 03/29/22 09:57 Famotidine 20 Mg Tab PO 20 mg BID SALONI Administration Furosemide 40 mg 03/28/22 06:00 03/29/22 06:00 Furosemide 40 Mg/4 Ml Inj IV 40 mg BID@0600,1800 SALONI Administration Heparin Sodium (Porcine) 7,500 unit 03/28/22 10:00 03/29/22 09:57 Heparin 5,000 Unit/1 Ml Vial SUB-Q 7,500 unit Q8H SALONI Administration Hydromorphone HCl 0.5 mg 03/28/22 05:29 Hydromorphone 1 Mg/1 Ml Inj IV Q3H PRN Pain , Severe (7-10) Morphine Sulfate 2 mg 03/28/22 05:29 Morphine 2 Mg/1 Ml Inj IV Q4H PRN Pain, Moderate (4-6) Ondansetron HCl 4 mg 03/28/22 05:29 Ondansetron 4 Mg/2 Ml Inj IV Q8H PRN Nausea And Vomiting Sodium Chloride 10 ml 03/28/22 10:00 03/29/22 09:58 Sodium Chloride 0.9% 10 Ml Flush Syringe IV 10 ml BID SALONI Administration Sodium Chloride 10 ml 03/28/22 05:29 Sodium Chloride 0.9% 10 Ml Flush Syringe IV PRN PRN LINE FLUSH Spironolactone 25 mg 03/28/22 10:00 03/29/22 09:57 Spironolactone 25 Mg Tab PO 25 mg QDAY SALONI Administration Valsartan 160 mg 03/28/22 10:00 03/29/22 09:56 Valsartan 160mg Tab PO 160 mg DAILY SALONI Administration
[2022-03-29] MEDS: FUROSEMIDE 40 MG TAB PO SCH (17:06)
[2022-03-30] MEDS: HEPARIN 5,000 UNIT/1 ML VIAL SUB-Q SCH ×2 (02:28→09:38)
[2022-03-30] MEDS: FUROSEMIDE 40 MG TAB PO SCH (06:13)
[2022-03-30] MEDS ORDERED: carvediloL 6.25 MG TAB PO SCH (07:17)
[2022-03-30] MEDS: IPRATROPIUM/ALBUTEROL SULFATE 3 ML AMPUL.NEB IH SCH (07:55)
[2022-03-30] MEDS ORDERED: carvediloL 25 MG TAB PO SCH (08:00)
[2022-03-30 08:14] LABS: BUN/Creatinine Ratio 18; Blood Urea Nitrogen 22 mg/dL (9-20); Hemolysis Index 5
[2022-03-30] MEDS: SPIRONOLACTONE 25 MG TAB PO SCH (09:38)
[2022-03-30] MEDS: amLODIPine 10 MG TAB PO SCH (09:38)
[2022-03-30] MEDS: FAMOTIDINE 20 MG TAB PO SCH (09:38)
[2022-03-30] MEDS: ASPIRIN EC 81 MG TAB PO SCH (09:38)
[2022-03-30] MEDS: VALSARTAN 160MG TAB PO SCH (09:38)
[2022-03-30 10:28] VITALS: BP 137/95
--- NOTE | 2022-03-30 11:11 | Discharge Summary ---
Providers - Providers Date of Admission: 03/28/22 05:29 Attending physician: THERESA MARCIAL MD 03/28/22 14:06 Consult to Physician [CONS] Routine Comment: Consulting Provider: JESSE LOPEZ Physician Instructions: Reason For Exam: Acute systolic HF (EF 20%)- new diagnosis Primary care physician: COLLEEN LI Hospitalization Reason for admission: Shortness of breath Condition: Stable Hospital course: 36-year-old male with history of morbid obesity and previous COVID-19 viral infection about 2 weeks ago was brought to the emergency room because of acute onset persistent shortness of breath on exertion with mild dry cough and orthopnea for the last 1 week. Patient also complains of nausea and vomiting and diffuse abdominal pain for the last 5 days. Patient states that in the last 2 days he has not been able to keep anything down because of persistent nausea and vomiting and diffuse abdominal pain and worsening shortness of breath. Patient states that he has since tested negative for COVID-19 viral infection about 3 days ago. Patient denies fever, chills, diarrhea, dizziness, syncope, change in vision, neck pain, headache, sore throat, hemoptysis or hematemesis. In the emergency room patient is found to have proBNP of 4129 .Chest CTA showed no CT evidence for pulmonary embolism. In addition, it also showed enlarged lymph nodes within the prevascular space, lower right paratracheal space, and borderline enlarged right hilar lymph nodes. The lungs showed subsegmental atelectasis within the lingula. Within the lower lobes, smoothly thickened interlobular septal lines are present. The dependent pulmonary venous structures are minimally engorged. These findings are most suggestive of mildly decompens ated CHF with vascular congestive changes as well as mild interstitial pulmonary edema. The abdomen pelvis CT scan with IV contrast showed no acute abnormalities in the abdomen and pelvis So going to admit the patient , we will put the patient on CHF Patient's treatments as outlined below included diuresis with IV Lasix. Creatinine bumped up gradually and then improved. Lasix has been changed to p.o. Extensive counseling on heart failure has been had with the patient and he verbalized understanding. Discussed with the lead systems architect who saw the patient and recommended that the patient will definitely need further work-up including cardiac MRI and stress test and this can be done outpatient. Also possible LifeVest the patient verbalized understanding. Blood pressure was managed appro priately and is since improved. Further documentation by the lead systems architect as noted below The patient is a 36-year-old man severely obese, who admits to a known history of hypertension for which he has not seen a physician in many years. He presents to the hospital at this time with a 1 to 2-week history of progressive fatigue, shortness of breath, and exercise intolerance. He reports no chest pain, and minimal to no significant lower extremity edema. Work-up in the hospital, ECG was a sinus rhythm, left axis deviation, left ventricle hypertrophy but no acute ST or T wave abnormalities of ischemia or infarction. His chest x-ray demonstrated a severe cardiomegaly, with mild bilateral interstitial edema, worse on the right. Echocardiogram done yesterday shows a severe four-chamber dilated cardiomyopathy, with left ventricular ejection fraction less than 15 to 20%. The patient reports no known cardiac history. He reports no prior cardiac work- up. His recent medical history is notable for a severe COVID infection 4 months ago, which she states was managed in the outpatient setting, and following which he reports intermittent fatigue until his current persistent and progressive symptoms. Notably, his presentation to the hospital yesterday, his COVID serology test is positive. He was not vaccinated before his infection in October, but states that since then he has received at least 1 dose of the vaccine. He currently is on the medical floor, looks comfortable in no acute distress. The chronicity of his cardiomyopathy is uncertain, but patient has chronic severe uncontrolled hypertension. Optimize medical therapy with diuretics, afterload agents, beta-blockers, spironolactone and oral antiplatelet therapy. Four-chamber cardiomyopathy in this clinical setting is of a likely idiopathic etiology. #Acute systolic heart failure (newly diagnosed) - TTE (03/28/2022) revealing EF 20% with severely dilated LV, severely decreased L V systolic function, severe global hypokinesis of LV, moderately dilated RV, severely dilated LA, dilated RA, and RVSP is 35 mmHg. Chest x-ray interpreted by physician: Increased cardiac silhouette, loss of left costophrenic angle, increased interstitial markings suggestive of pulmonary edema - Continue to monitor #Uncontrolled hypertension - home medications: None - current medications: Valsartan 160 mg daily, amlodipine 10 mg daily, Coreg 12.5mg twice daily - SBP goal <160 and DBP goal <90 while inpatient - continue to monitor #Prior COVID-19 history #Positive coronavirus PCR Patient endorses being diagnosed with COVID-19 approximately 2 weeks ago and having a negative COVID-19 test approximately 3 days prior to presentation Ordering airborne and droplet precautions. No clinical indication to initiate coronavirus treatment. #Abdominal pain Continue with Pepcid 20 mg twice daily, IV Zofran 4 mg every 6 hours as needed Continue to monitor #Elevated transaminases ALT 103 Possibly secondary to volume overload. Continue to monitor. #Morbid obesity #Weight loss counseling #Exercise counseling - BMI 47.5 - Counseled patient on the importance of weight loss, incorporating exercise, and dietary changes (lean meats, fresh fruits and vegetables, and water intake). Patient expresses understanding. - Time: +15 min I have stressed the importance of following up with the heart doctor outpatient for complete work-up to the patient and he verbalized understanding Disposition: 01 HOME / SELF CARE / HOMELESS Final Discharge Diagnosis (Prints w/discharge instructions): Acute systolic heart failure (newly diagnosed), uncontrolled hypertension, morbid obesity Time spent for discharge: 35 minutes Core Measure Documentation - Palliative Care Palliative Care/ Comfort Measures: Not Applicable - Core Measures Any of the following diagnoses?: heart failure - Heart Failure Discharge Requirements MELCHOR/ARB for LVSD if EF <40%: Yes Beta denilson at discharge: Yes Exam - Physical Exam Narrative exam: VITAL SIGNS: Reviewed. GENERAL: The patient appears normally developed, morbidly obese vital signs as documented. HEAD: No signs of head trauma. EYES: Pupils are equal. Extraocular motions intact. EARS: Hearing grossly intact. MOUTH: Oropharynx is normal. NECK: No adenopathy, no JVD. CHEST: Chest with diminished breath sounds bilaterally. No wheezes, rales, or rhonchi. CARDIAC: Regular rate and rhythm. S1 and S2, without murmurs, gallops, or rubs. VASCULAR: No Edema. Peripheral pulses normal and equal in all extremities. ABDOMEN: Soft, non tender and non distended. No rebound or guarding, and no masses palpated. Bowel Sounds normal. MUSCULOSKELETAL: Good range of motion of all major joints. Extremities without clubbing, cyanosis or edema. NEUROLOGIC EXAM: Alert and oriented x 3 No focal sensory or strength deficits. Speech normal. Follows commands. PSYCHIATRIC: Mood normal. SKIN: detail exam as documented in skin assessment - Constitutional Vitals: Temp Pulse Resp BP Pulse Ox 98.6 F 96 H 18 137/95 98 03/30/22 10:10 03/30/22 10:07 03/30/22 10:07 03/30/22 10:07 03/30/22 10:07 Plan Activity: advance as tolerated, fall precautions Diet: low salt Special Instructions: restrict fluid intake to (1200CC/DAY) Follow up with: COLLEEN LI MD [Primary Care Provider] - 3-5 Days TIESHA PABLO MD [Staff Physician] - 7 Days Prescriptions: Spironolactone [Aldactone] 25 mg PO QDAY #30 tablet amLODIPine 10 mg PO QDAY #30 tablet carvediloL [Coreg] 25 mg PO BID #60 tablet Valsartan [Diovan] 160 mg PO DAILY #30 tablet Aspirin EC [Halfprin EC] 81 mg PO QDAY #30 tablet Furosemide [Lasix TAB] 40 mg PO QDAY #30 tablet Pantoprazole [Protonix TAB] 40 mg PO QDAY #30 tablet
[2022-03-31] MEDS ORDERED: FUROSEMIDE 40 MG TAB PO SCH (10:00)
== END 2022-03-30 13:49 | disposition home or self-care (01) | DRG 291 ==
LOC: ED 17:32 → 4A 03-28 05:29 → 3A 03-29 13:04
PROVIDERS: ADMIT Hospitalist; ATTEND Internal Medicine
DX: I11.0 Hypertensive heart disease with heart failure (principal); U07.1 COVID-19; I50.21 Acute systolic (congestive) heart failure; Z68.42 Body mass index [BMI] 45.0-49.9, adult; E66.01 Morbid (severe) obesity due to excess calories; Z71.3 Dietary counseling and surveillance; Z82.49 Family history of ischemic heart disease and other diseases of the circulatory system
CPT/HCPCS: 36415; 71046; 71275; 74177; 80048; 80053; 80061; 82150; 83036; 83690; 83880; 84484; 85025; 93005; 93306; 94640; 96374; 96375; 99285; G0378; J3490; C8929; J1644; J1940; J2270; J2405; Q9967; U0003